=== PATIENT | male | born 1990 | race American Indian/Alaskan Native ===

== ENCOUNTER 2017-01-01 14:07 | Emergency (ER) | payer SELFPAY ==
[2017-01-01] MEDS ORDERED: ZITHROMAX PO ONE (17:41)
--- NOTE | 2017-01-01 17:50 | Emergency Department Report ---
HPI - General Chief Complaint: Upper Respiratory Infection Time Seen by Provider: 01/01/17 17:40 - HPI HPI: Patient is a 26-year-old male presents to ED complaining of cough headache and fever for the past 3 weeks. Patient states he has not taken any medications and has not gotten relief. Patient describes his cough as productive intermittently with clear to greenish sometimes bloody mucus. Patient admits chest congestion and generalized body aches. Patient also had made some intermittent fever. He denies nausea/vomiting/dysuria/drug or alcohol use. ED Past Medical Hx - Past Medical History Previous Medical History?: Yes Additional medical history: heart murmur - Surgical History Past Surgical History?: No - Social History Smoking Status: Current Every Day Smoker Substance Use Type: Marijuana - Medications Home Medications: Home Medications Medication Instructions Recorded Confirmed Last Taken Type Acetaminophen/Codeine [Tylenol #3] 1 tab PO Q6H PRN #15 tab 06/07/14 Unknown Rx Penicillin Vk [Veetids TAB] 500 mg PO QID #40 tablet 06/07/14 Unknown Rx ALBUTEROL Inhaler [ProAir HFA 2 puff IH QID PRN #1 pump 01/01/17 Unknown Rx Inhaler] Acetamin/Codeine 120-12Mg/5 ml 5 ml PO TID PRN #60 ml 01/01/17 Unknown Rx [Tylenol/Codeine] Azithromycin [Zithromax TAB] 500 mg PO QDAY #7 tablet 01/01/17 Unknown Rx Ibuprofen [Motrin] 800 mg PO Q8HR PRN #30 tablet 01/01/17 Unknown Rx ED Review of Systems ROS: Stated complaint: COUGH/CONGESTION/STUFFYNOSE Other details as noted in HPI Constitutional: denies: chills, fever Eyes: denies: eye pain, eye discharge, vision change ENT: congestion. denies: ear pain, throat pain Respiratory: denies: cough, shortness of breath, wheezing Cardiovascular: denies: chest pain, palpitations Endocrine: no symptoms reported Gastrointestinal: denies: abdominal pain, nausea, diarrhea Genitourinary: denies: urgency, dysuria Musculoskeletal: denies: back pain, joint swelling, arthralgia Skin: denies: rash, lesions, pruritus Neurological: denies: headache, weakness, numbness, paresthesias Psychiatric: denies: anxiety, depression Hematological/Lymphatic: denies: easy bleeding, easy bruising Physical Exam - Physical Exam Vital Signs: Vital Signs 01/01/17 14:39 Temperature 99.6 F Pulse Rate 116 H Respiratory 20 Rate Blood Pressure 120/78 O2 Sat by Pulse 96 Oximetry Physical Exam: GENERAL: Alert and oriented x3, no apparent distress, Normal Gait, atraumatic. HEAD: Head is normocephalic and a-traumatic. EYES: Extra ocular muscles are intact. Pupils are equal, round, and reactive to light and accommodation. EARS: symetrical, atraumatic, non tender, ear canal clear and moderate cerumen, tympanic membrance non inflamed. gross auditory nml bilaterally. NOSE: Nose symetrical, Nontender,Nares appeared normal. MOUTH:Mouth is well hydrated and without lesions. Tonsils nonerythematous or swollen, Uvula midline, Tongue not elevated. Mucous membranes are moist. Posterior pharynx clear, no exudate or lesions. Patent airways. NECK: Supple. Non edematous, No lymphadenopathy or thyromegaly. No nuchal rigidity LUNGS: Symetrical with respiration, No wheezing, no rales or crackles, decreased breath sounds heard, positive consultation HEART: S1, S2 present, regular rate and rhythm without murmur, no rubs, no gallops. Non tender to palpation BACK: Full range of motion, no spinal tenderness, nontender to palpation. SKIN: Warm and dry, No lesions, No ulceration or induration present. ED Course Vital Signs 01/01/17 14:39 Temperature 99.6 F Pulse Rate 116 H Respiratory 20 Rate Blood Pressure 120/78 O2 Sat by Pulse 96 Oximetry ED Medical Decision Making - Lab Data Vital Signs 01/01/17 01/01/17 01/01/17 14:39 19:07 19:08 Temperature 99.6 F Pulse Rate 116 H 91 H 87 Respiratory 20 18 18 Rate Blood Pressure 120/78 Blood Pressure 118/76 [Left] O2 Sat by Pulse 96 97 98 Oximetry - Radiology Data Radiology results: report reviewed, image reviewed FINAL REPORT EXAM: XR CHEST ROUTINE 2V HISTORY: Bloody sputum cough TECHNIQUE: PA and lateral views of the chest PRIORS: None. FINDINGS: Lines, tubes, and devices: N/A Lungs and pleura: Trachea is normal in position. Lungs are clear of infiltrate, pleural effusion, vascular congestion, or pneumothorax. Cardiomediastinal silhouette: Cardiac and mediastinal silhouettes are unremarkable. Other: Bony structures are intact. IMPRESSION: No acute cardiopulmonary process seen. Transcribed By: [facility] Dictated By: ZEKE WINTERS MD Electronically Authenticated By: ZEKE WINTERS MD Signed Date/Time: 01/01/17 1508 - Medical Decision Making 26-year-old female presents with upper respiratory infection ED course: Patient received 500 mg azithromycin and Tylenol with Codeine Chest x-ray ordered. Chest x-ray shows no upper maladies. Discussed findings with the patient. Discussed with patient to take medication as prescribed. Discussed the patient will be treating him prophylaxis with antibiotics due to the duration of his symptoms. I discussed the patient to resume any increase hydration and rest probably. Vital signs normalized prior to discharge, pulse rate creased. Discussed the patient if he had any new onset of symptoms or worsening symptoms such as shortness of breath difficulty breathing to return to ED I discussed the patient will follow up with his primary care physician or as referred. Patient is in no respiratory distress. He is resting comfortably and sleeping in his bed Critical care attestation.: If time is entered above; I have spent that time in minutes in the direct care of this critically ill patient, excluding procedure time. ED Disposition Clinical Impression: URI (upper respiratory infection) Qualifiers: URI type: unspecified URI Qualified Code(s): J06.9 - Acute upper respiratory infection, unspecified Disposition: DC- TO HOME OR SELFCARE Is pt being admited?: No Does the pt Need Aspirin: No Condition: Stable Instructions: Upper Respiratory Infection (ED), Bacterial Pneumonia (ED) Additional Instructions: Take medication as prescribed. Follow-up with private care physician If you have any worsening symptoms or new onset of symptoms please return to ED. Make to drink plenty of fluids and rest Prescriptions: Acetamin/Codeine 120-12Mg/5 ml [Tylenol/Codeine] 5 ml PO TID PRN #60 ml PRN Reason: Pain ALBUTEROL Inhaler [ProAir HFA Inhaler] 2 puff IH QID PRN #1 pump PRN Reason: Cough Azithromycin [Zithromax TAB] 500 mg PO QDAY #7 tablet Ibuprofen [Motrin] 800 mg PO Q8HR PRN #30 tablet PRN Reason: Pain Referrals: PRIMARY CARE, [Primary Care Provider] - 3-5 Days [facility] [Outside] - 3-5 Days [facility] [Outside] - 3-5 Days [facility] [Outside] - 3-[address] [facility] [Outside] - 3-5 Days Forms: Work/School Release Form(ED) Time of Disposition: 19:05
--- NOTE | 2017-01-01 19:11 | XRay Report ---
FINAL REPORT EXAM: XR CHEST ROUTINE 2V HISTORY: Bloody sputum cough TECHNIQUE: PA and lateral views of the chest PRIORS: None. FINDINGS: Lines, tubes, and devices: N/A Lungs and pleura: Trachea is normal in position. Lungs are clear of infiltrate, pleural effusion, vascular congestion, or pneumothorax. Cardiomediastinal silhouette: Cardiac and mediastinal silhouettes are unremarkable. Other: Bony structures are intact. IMPRESSION: No acute cardiopulmonary process seen.
[2017-01-01 21:52] VITALS: BP 118/76
== END 2017-01-01 19:08 | disposition home or self-care (01) ==
LOC: ED 14:07
DX: J06.9 Acute upper respiratory infection, unspecified (principal); F17.200 Nicotine dependence, unspecified, uncomplicated
CPT/HCPCS: 71020

== ENCOUNTER 2020-12-19 23:41 | Emergency (ER) | payer SELFPAY ==
[2020-12-20] MEDS ORDERED: KETOROLAC 30 MG/1 ML INJ IM ONE (02:21)
--- NOTE | 2020-12-20 02:21 | Emergency Department Report ---
HPI - General Chief Complaint: Extremity Injury, Upper Time Seen by Provider: 12/20/20 01:44 - HPI HPI: 30-year-old -[place] male presents to the emergency department with complaint of "numbness" from the neck down his right arm and into the fingers of his right hand. Overall this has been going on for the past 3 months but has become more consistent recently, which is what prompted him to come in for evaluation. It does not sound like actual numbness in which there is a lack of sensation, but he describes a sharp burning pain and some [id number]. He says that recently it causes him to have some difficulty completely closing his right hand. He has full range of motion of the right upper extremity but movement causes increased discomfort. He denies any rash, swelling of the extremity, headache. He has tried some [id number] ibuprofen at different points without much relief. He has a past medical history of sleep apnea and narcolepsy. ED Past Medical Hx - Past Medical History Additional medical history: heart murmur - Surgical History Past Surgical History?: No - Social History Smoking Status: Current Every Day Smoker Substance Use Type: Marijuana - Medications Home Medications: Home Medications Medication Instructions Recorded Confirmed Last Taken Type Acetaminophen/Codeine [Tylenol #3] 1 tab PO Q6H PRN #15 tab 06/07/14 Unknown Rx Penicillin Vk [Veetids TAB] 500 mg PO QID #40 tablet 06/07/14 Unknown Rx Acetamin/Codeine 120-12Mg/5 ml 5 ml PO TID PRN #60 ml 01/01/17 Unknown Rx [Tylenol/Codeine] Albuterol Mdi (or & Nicu Only) 2 puff IH QID PRN #1 pump 01/01/17 Unknown Rx [ProAir HFA Inhaler] Azithromycin [Zithromax TAB] 500 mg PO QDAY #7 tablet 01/01/17 Unknown Rx Cyclobenzaprine [Flexeril] 10 mg PO TID PRN #12 tablet 12/20/20 Unknown Rx Ibuprofen [Motrin 800 MG tab] 800 mg PO Q8HR PRN #20 tablet 12/20/20 Unknown Rx ED Review of Systems ROS: Stated complaint: RIGHT ARM NUMBNESS Other details as noted in HPI Comment: All other systems reviewed and negative Constitutional: denies: chills, fever Eyes: denies: eye pain, vision change ENT: denies: ear pain, throat pain Respiratory: denies: cough, shortness of breath Cardiovascular: denies: chest pain, palpitations Gastrointestinal: denies: abdominal pain, vomiting Genitourinary: denies: dysuria, discharge Musculoskeletal: arthralgia, myalgia Skin: denies: rash, lesions Neurological: numbness, paresthesias. denies: headache Physical Exam - Physical Exam Vital Signs: Vital Signs 12/20/20 00:01 Temperature 98.5 F Pulse Rate 96 H Respiratory 17 Rate Blood Pressure 143/97 [Right] O2 Sat by Pulse 98 Oximetry Physical Exam: GENERAL: The patient is well-developed well-nourished. HENT: Normocephalic. Atraumatic. Patient has moist mucous membranes. EYES: Extraocular motions are intact. NECK: Supple. Trachea is midline. Side bending of the neck reproduces and/or worsens the patient's right arm symptoms. CHEST/LUNGS: Clear to auscultation. There is no respiratory distress noted. HEART/CARDIOVASCULAR: Regular. There is no tachycardia. There is no murmur. ABDOMEN: Abdomen is soft, nontender. Patient has normal bowel sounds. SKIN: Skin is warm and dry. NEURO: The patient is awake, alert, and oriented. The patient is cooperative. The patient has no focal neurologic deficits. Normal speech. MUSCULOSKELETAL: There is no tenderness to palpation or deformity. Radial pulse +2/4 and capillary refill less than 2 seconds to the affected right upper extremity. Muscle strength 5 out of 5 for upper extremities bilaterally. ED Course Vital Signs 12/20/20 00:01 Temperature 98.5 F Pulse Rate 96 H Respiratory 17 Rate Blood Pressure 143/97 [Right] O2 Sat by Pulse 98 Oximetry ED Medical Decision Making - Lab Data Result diagrams: 12/20/20 02:05 Lab Results 12/20/20 Range/Units 02:05 Sodium 140 (137-145) mmol/L Potassium 4.3 (3.6-5.0) mmol/L Chloride 103.8 (98-107) mmol/L Carbon Dioxide 25 (22-30) mmol/L Anion Gap 16 mmol/L BUN 13 (9-20) mg/dL Creatinine 1.1 (0.8-1.3) mg/dL Estimated GFR > 60 ml/min BUN/Creatinine Ratio 12 % Glucose 130 H (75-100) mg/dL Calcium 9.6 (8.4-10.2) mg/dL Magnesium 2.00 (1.7-2.3) mg/dL - Medical Decision Making This patient presents to the emergency department with a 3-month history of some pain down the right upper extremity and what he says is "numbness", but seems more like paresthesias and/or neuropathy. He describes that the pain comes down from the neck, but denies any actual neck pain. On examination the patient has full range of motion of all extremities. He appears neurovascularly intact. Radial pulse +2/4 and capillary refill less than 2 seconds to the affected right upper extremity. He has full muscle strength for bilateral upper extremities, 5 out of 5. As the patient has not had any trauma, fall, or obvious injury, and does not have any neck pain, I did not feel that the patient required any x-ray or CT imaging of the neck/cervical spine. Labs have been unremarkable including BMP and magnesium levels. Patient was given a shot of Toradol. Upon reevaluation the patient is seen sleeping and/or resting comfortably, but is easily arousable. Patient symptoms appear more consistent with radicular pain versus neuropathic pain. Patient does not have any actual weakness or numbness. It has been going on for 3 months but has just become more consistent. CVA, cord compression and epidural abscess seem unlikely. Vital signs reassuring including being afebrile. Patient will be given a prescription for NSAIDs and muscle relaxer. He has been given outpatient referrals for a larger orthopedic group, as well as a local neurosurgeon. He will return to the emergency department with any worsening of symptoms or with any acute distress. Critical Care Time: No Critical care attestation.: If time is entered above; I have spent that time in minutes in the direct care of this critically ill patient, excluding procedure time. ED Disposition Clinical Impression: Radicular pain in right arm, Paresthesias Disposition: 01 HOME / SELF CARE / HOMELESS Is pt being admited?: No Condition: Stable Instructions: Paresthesia, Neuropathic Pain Additional Instructions: I am giving you a referral for a local orthopedic group, [facility], and a referral for a local neurosurgeon, Dr. Jose, to follow-up regarding your right arm pain and numbness that is coming from your neck. You have been prescribed a medication that is sedating and therefore should not be taken prior to driving, working, and responsible for children and in no way should be mixed with alcohol of any quantity. Return to the emergency department with any worsening of your symptoms, new or concerning symptoms not addressed during this current emergency department visit, or with any acute distress. Prescriptions: Cyclobenzaprine [Flexeril] 10 mg PO TID PRN #12 tablet PRN Reason: Muscle Spasm Ibuprofen [Motrin 800 MG tab] 800 mg PO Q8HR PRN #20 tablet PRN Reason: Pain Referrals: GISEL JOSE II, MD [Staff Physician] - 3-5 Days [facility] [Provider Group] - 3-5 Days Time of Disposition: 03:45
[2020-12-20 02:49] LABS: BUN/Creatinine Ratio 12; Blood Urea Nitrogen 13 mg/dL (9-20); Calcium 9.6 mg/dL (8.4-10.2); Hemolysis Index 11
[2020-12-20 04:18] VITALS: BP 120/88
== END 2020-12-20 04:04 | disposition home or self-care (01) ==
LOC: ED 23:41
DX: M79.601 Pain in right arm (principal); R20.2 Paresthesia of skin; F17.200 Nicotine dependence, unspecified, uncomplicated
CPT/HCPCS: 36415; 80048; 83735; 96372; 99283; J1885

== ENCOUNTER 2021-02-27 16:34 | Emergency (ER) | payer SELFPAY ==
[2021-02-27 17:09] VITALS: BP 142/80
[2021-02-27] MEDS ORDERED: dexAMETHasone 4 MG/ML VIAL IM STA (20:19)
--- NOTE | 2021-02-27 20:24 | Emergency Department Report ---
ED General Adult HPI - General Chief complaint: Extremity Injury, Upper Stated complaint: ARM PAIN Time Seen by Provider: 02/27/21 20:16 Source: patient Mode of arrival: Ambulatory Limitations: No Limitations - History of Present Illness Initial comments: 30-year-old -[place] Islander male presents with complaints of worsening numbness to his right shoulder radiating down his arm into his hand over the past 3 to 4 weeks. Patient seen here for the same issue on 12/19/2020. He states he has had had numbness and tingling into his arms bilaterally intermittently over the past 5 years. He reports that his last visit he was given a shot of steroids and his symptoms improved. He is requesting a shot of steroids today and a referral to the orthopedic nurse. He states he had not followed up with the orthopedic nurse due to not having insurance prior. He denies any new injuries, fever/chills/sweats, difficulty moving his neck or arms, or history of cancer. Severity scale (0 -10): 7 - Related Data Previous Rx's Medication Instructions Recorded Last Taken Type Acetaminophen/Codeine [Tylenol #3] 1 tab PO Q6H PRN #15 tab 06/07/14 Unknown Rx Penicillin Vk [Veetids TAB] 500 mg PO QID #40 tablet 06/07/14 Unknown Rx Acetamin/Codeine 120-12Mg/5 ml 5 ml PO TID PRN #60 ml 01/01/17 Unknown Rx [Tylenol/Codeine] Albuterol Mdi (or & Nicu Only) 2 puff IH QID PRN #1 pump 01/01/17 Unknown Rx [ProAir HFA Inhaler] Azithromycin [Zithromax TAB] 500 mg PO QDAY #7 tablet 01/01/17 Unknown Rx Cyclobenzaprine [Flexeril] 10 mg PO TID PRN #12 tablet 12/20/20 Unknown Rx Ibuprofen [Motrin 800 MG tab] 800 mg PO Q8HR PRN #20 tablet 12/20/20 Unknown Rx Naproxen 500 mg PO BID PRN #20 tab 02/27/21 Unknown Rx methOCARBAMOL [Robaxin TAB] 750 - 1,500 mg PO TID PRN #30 02/27/21 Unknown Rx tablet predniSONE [Deltasone] 20 mg PO BID 2 Days #4 tab 02/27/21 Unknown Rx Allergies Allergy/AdvReac Type Severity Reaction Status Date / Time No Known Allergies Allergy Verified 07/13/14 19:19 ED Review of Systems ROS: Stated complaint: ARM PAIN Other details as noted in HPI Constitutional: denies: chills, diaphoresis, fever, malaise, weakness Respiratory: denies: cough, shortness of breath Cardiovascular: denies: chest pain Musculoskeletal: denies: joint swelling, arthralgia Skin: denies: change in color Neurological: numbness, paresthesias ED Past Medical Hx - Past Medical History Additional medical history: heart murmur - Surgical History Past Surgical History?: No - Social History Smoking Status: Current Every Day Smoker Substance Use Type: Marijuana - Medications Home Medications: Home Medications Medication Instructions Recorded Confirmed Last Taken Type Acetaminophen/Codeine [Tylenol #3] 1 tab PO Q6H PRN #15 tab 06/07/14 Unknown Rx Penicillin Vk [Veetids TAB] 500 mg PO QID #40 tablet 06/07/14 Unknown Rx Acetamin/Codeine 120-12Mg/5 ml 5 ml PO TID PRN #60 ml 01/01/17 Unknown Rx [Tylenol/Codeine] Albuterol Mdi (or & Nicu Only) 2 puff IH QID PRN #1 pump 01/01/17 Unknown Rx [ProAir HFA Inhaler] Azithromycin [Zithromax TAB] 500 mg PO QDAY #7 tablet 01/01/17 Unknown Rx Cyclobenzaprine [Flexeril] 10 mg PO TID PRN #12 tablet 12/20/20 Unknown Rx Ibuprofen [Motrin 800 MG tab] 800 mg PO Q8HR PRN #20 tablet 12/20/20 Unknown Rx Naproxen 500 mg PO BID PRN #20 tab 02/27/21 Unknown Rx methOCARBAMOL [Robaxin TAB] 750 - 1,500 mg PO TID PRN #30 02/27/21 Unknown Rx tablet predniSONE [Deltasone] 20 mg PO BID 2 Days #4 tab 02/27/21 Unknown Rx ED Physical Exam - General Limitations: No Limitations General appearance: alert, in no apparent distress - Head Head exam: Present: atraumatic, normocephalic - Eye Eye exam: Present: normal appearance - Neck Neck exam: Present: normal inspection, full ROM. Absent: tenderness - Respiratory Respiratory exam: Absent: respiratory distress - Cardiovascular Cardiovascular Exam: Present: regular rate - Extremities Exam Extremities exam: Present: full ROM, other (Normal radial and ulnar pulses noted bilaterally along with normal sensation to the skin of the right upper extremit y; mild decrease in right hand with squeeze) - Neurological Exam Neurological exam: Present: alert, oriented X3, normal gait - Psychiatric Psychiatric exam: Present: normal affect, normal mood - Skin Skin exam: Present: warm, dry, intact, normal color. Absent: rash ED Course Vital Signs 02/27/21 17:08 Temperature 98.1 F Pulse Rate 70 Respiratory 20 Rate Blood Pressure 142/80 [Right] O2 Sat by Pulse 100 Oximetry ED Medical Decision Making - Medical Decision Making 30-year-old -[place] Island[place] male presents with complaints of worsening numbness to his right shoulder radiating down his arm into his hand over the past 3 to 4 weeks. Patient seen here for the same issue on 12/19/2020. He states he has had had numbness and tingling into his arms bilaterally intermittently over the past 5 years. He reports that his last visit he was given a shot of steroids and his symptoms improved. He is requesting a shot of steroids today and a referral to the orthopedic nurse. He states he had not followed up with the orthopedic nurse due to not having insurance prior. He denies any new injuries, fever/chills/sweats, difficulty moving his neck or arms, or history of cancer. Patient given Decadron. Will discharge home with Robaxin, naproxen, and prednisone. Referral given for business analysis specialist. Discussed in detail signs and symptoms that should prompt immediate return to the ED with patient verbalized understanding Critical care attestation.: If time is entered above; I have spent that time in minutes in the direct care of this critically ill patient, excluding procedure time. ED Disposition Clinical Impression: Radiculopathy, cervical Disposition: HOME / SELF CARE / HOMELESS Is pt being admited?: No Condition: Stable Instructions: Cervical Radiculopathy, [id number] Prescriptions: predniSONE [Deltasone] 20 mg PO BID 2 Days #4 tab Naproxen 500 mg PO BID PRN #20 tab PRN Reason: pain methOCARBAMOL [Robaxin TAB] 750 - 1,500 mg PO TID PRN #30 tablet PRN Reason: Muscle spasm/tightness Referrals: [facility] [Provider Group] - 3-5 Days [facility] [Provider Group] - 3-5 Days Forms: Work/School Release Form(ED)
== END 2021-02-27 20:40 | disposition home or self-care (01) ==
LOC: ED 16:34
DX: M54.12 Radiculopathy, cervical region (principal); F17.200 Nicotine dependence, unspecified, uncomplicated; F12.10 Cannabis abuse, uncomplicated
CPT/HCPCS: 99282; J1100